=== PATIENT | female | born 2000 | race African-American/Black ===

== ENCOUNTER 2023-01-04 19:23 | Emergency (ER) | payer SELFPAY ==
[2023-01-04 20:14] LABS: BASOPHILS ABSOLUTE AUTO 0.05 10^3/uL (0.00-0.10); BASOPHILS PERCENT AUTO 0.4 % (0.0-1.0); EOSINOPHILS ABSOLUTE AUTO 0.38 10^3/uL (0.10-0.30); EOSINOPHILS PERCENT AUTO 3.3 % (1.0-3.0); HEMATOCRIT 41.5 % (37.0-47.0); HEMOGLOBIN 13.3 g/dL (12.0-16.0); IMMATURE GRAN ABSOLUTE AUTO 0.01 10^3/uL (0.00-0.50); IMMATURE GRAN PERCENT AUTO 0.1 % (0.0-5.0); LYMPHOCYTES ABSOLUTE AUTO 1.38 10^3/uL (1.00-4.00); LYMPHOCYTES PERCENT AUTO 12.1 % (20.0-40.0); MEAN CORPUSCULAR HEMOGLOBIN 25.5 pg (27.0-31.0); MEAN CORPUSCULAR VOLUME 79.7 fL (82.0-92.0); MEAN PLATELET VOLUME 9.5 fL (7.4-10.4); MONOCYTES ABSOLUTE AUTO 0.52 10^3/uL (0.10-0.80); MONOCYTES PERCENT AUTO 4.6 % (2.0-8.0); NEUTROPHILS ABSOLUTE AUTO 9.06 10^3/uL (2.50-7.00); NEUTROPHILS PERCENT AUTO 79.5 % (50.0-70.0); PLATELET COUNT,PLT 324 10^3/uL (150-400); RED BLOOD CELL COUNT 5.21 10^6/uL (3.80-5.50); RED CELL DISTRIBUTION WIDTH 13.7 % (11.5-14.5)
[2023-01-04 20:57] LABS: CORONAVIRUS COVID-19 NAA NEGATIVE (NEGATIVE); INFLUENZA A NAA NEGATIVE (NEGATIVE); INFLUENZA B NAA NEGATIVE (NEGATIVE); RESPIRATORY SYNCYTIAL VIR NAA NEGATIVE (NEGATIVE)
== END 2023-01-04 21:16 | disposition home or self-care (01) ==
LOC: KA.ED 19:23
DX: J06.9 Acute upper respiratory infection, unspecified (principal); Z91.018 Allergy to other foods; Z20.822 Contact with and (suspected) exposure to COVID-19
CPT/HCPCS: 0241U; 36415; 71046; 85025; 99283

== ENCOUNTER 2023-07-07 10:30 | Emergency (ER) | payer MEDICAID ==
[2023-07-07 11:14] LABS: BASOPHILS ABSOLUTE AUTO 0.04 10^3/uL (0.00-0.10); BASOPHILS PERCENT AUTO 0.3 % (0.0-1.0); EOSINOPHILS ABSOLUTE AUTO 0.17 10^3/uL (0.10-0.30); EOSINOPHILS PERCENT AUTO 1.4 % (1.0-3.0); HEMATOCRIT 39.8 % (37.0-47.0); HEMOGLOBIN 13.2 g/dL (12.0-16.0); IMMATURE GRAN ABSOLUTE AUTO 0.03 10^3/uL (0.00-0.50); IMMATURE GRAN PERCENT AUTO 0.2 % (0.0-5.0); LYMPHOCYTES ABSOLUTE AUTO 1.29 10^3/uL (1.00-4.00); LYMPHOCYTES PERCENT AUTO 10.3 % (20.0-40.0); MEAN CORPUSCULAR HEMOGLOBIN 26.9 pg (27.0-31.0); MEAN CORPUSCULAR HGB CONC 33.2 g/dL (32.0-36.0); MEAN CORPUSCULAR VOLUME 81.2 fL (82.0-92.0); MEAN PLATELET VOLUME 9.9 fL (7.4-10.4); MONOCYTES ABSOLUTE AUTO 0.48 10^3/uL (0.10-0.80); MONOCYTES PERCENT AUTO 3.8 % (2.0-8.0); NEUTROPHILS ABSOLUTE AUTO 10.53 10^3/uL (2.50-7.00); PLATELET COUNT,PLT 338 10^3/uL (150-400); RED CELL DISTRIBUTION WIDTH 13.2 % (11.5-14.5); WHITE BLOOD CELL COUNT,WBC 12.54 10^3/uL (5.00-10.00)
[2023-07-07] MEDS: Simethicone 80 MG Tab.Chew PO ONE (11:22)
[2023-07-07] MEDS: Ondansetron 4 MG/2 ML SDV IVPUSH ONE (11:23)
[2023-07-07] MEDS: Sodium Chloride 0.9% 1,000 ML IV ONE (11:23)
[2023-07-07 11:34] LABS: ALBUMIN 3.77 g/dL (3.40-5.00); ANION GAP 17.2 mmol/L (5-15); BILIRUBIN TOTAL 1.5 mg/dL (0.2-1.0); CALCIUM 8.8 mg/dL (8.7-10.3); CARBON DIOXIDE,CO2 22.4 mmol/L (21.0-32.0); CREATININE 0.6 mg/dL (0.51-1.17); EST CRCL DRUG DOSING (CG) 137.68 mL/min; POTASSIUM,K 3.6 mmol/L (3.5-5.1); PROTEIN TOTAL,TP 7.6 g/dL (6.4-8.2)
[2023-07-07 11:52] LABS: APPEARANCE,URINE SLIGHTLY CLOUDY (CLEAR); BILIRUBIN,URINE NEGATIVE (NEGATIVE); COLOR,URINE YELLOW (YELLOW); GLUCOSE,URINE NEGATIVE (NEGATIVE); KETONES,URINE 40 mg/dL (NEGATIVE); LEUKOCYTE ESTERASE,URINE NEGATIVE (NEGATIVE); NITRITE,URINE NEGATIVE (NEGATIVE); OCCULT BLOOD,URINE TRACE-INTACT (NEGATIVE); PROTEIN,URINE NEGATIVE (NEGATIVE); UROBILINOGEN,URINE 0.2 E.U./dL (0.2-1.0)
[2023-07-07 12:08] LABS: BACTERIA,URINE FEW /HPF (NONE TO FEW); EPITHELIAL CELLS,URINE MODERATE /LPF; RBC,URINE 0-5 /HPF (0-5); WBC,URINE 0-5 /HPF (0-5)
[2023-07-07 12:22] LABS: INFLUENZA A NAA NEGATIVE (NEGATIVE); INFLUENZA B NAA NEGATIVE (NEGATIVE); RESPIRATORY SYNCYTIAL VIR NAA NEGATIVE (NEGATIVE)
[2023-07-07] MEDS: Ketorolac 30 MG/ML SDV IVPUSH ONE (12:24)
[2023-07-07 12:29] LABS: CORONAVIRUS COVID-19 NAA NEGATIVE (NEGATIVE)
[2023-07-07] MEDS: Ondansetron 4 MG Tab.DIS PO ONE (12:50)
== END 2023-07-07 13:00 | disposition home or self-care (01) ==
LOC: KA.ED 10:30
DX: A08.4 Viral intestinal infection, unspecified (principal); J06.9 Acute upper respiratory infection, unspecified; Z91.018 Allergy to other foods; Z79.899 Other long term (current) drug therapy
CPT/HCPCS: 0241U; 36415; 74018; 80053; 81001; 81025; 83690; 85025; 96361; 96374; 96375; 99283; 99284-25; A9270-GY; J1885; J2405; J7030

== ENCOUNTER 2023-07-31 13:31 | Emergency (ER) | payer SELFPAY | END 2023-07-31 15:00 | disposition home or self-care (01) | LOC: KA.ED 13:31 | DX: K04.7 Periapical abscess without sinus (principal); K02.9 Dental caries, unspecified; E66.9 Obesity, unspecified; Z91.018 Allergy to other foods; Z79.899 Other long term (current) drug therapy; Z86.16 Personal history of COVID-19 | CPT/HCPCS: 99283 ==